=== PATIENT | female | born 2000 | race Caucasian/White ===

== ENCOUNTER 2020-11-07 14:18 | Emergency (ER) | payer SELFPAY ==
[~2020-11-07] VITALS: Ht 160 cm; Wt 54.5 kg
[2020-11-07 14:35] VITALS: TEMP 97.8
[2020-11-07 15:40] LABS: COLLECTION METHOD CLEAN CATCH
[2020-11-07 15:44] LABS: BASO % 0.2 % (0.0-2.0); EOS # 0.2 (0.0-0.7); EOS % 1.8 % (0-4.0); GRAN % 61.4 % (42.2-75.2); HEMOGLOBIN 12.7 g/dl (12.0-15.0); LYMPH # 2.4 (1.2-3.4); LYMPH % 29.4 % (20.0-51.0); MEAN CELL VOLUME 90 fl (80.0-95.0); MEAN CORPUSCULAR HEMOGLOBIN 31 pg (26.0-32.0); MEAN CORPUSCULAR HGB CONC 35 g/dl (33.0-37.0); MEAN PLATELET VOLUME 9.6 fl (7.4-10.4); MONO # 0.6 (0.1-0.6); PLATELET COUNT 280 K/mm3 (130-400); RED BLOOD COUNT 4.06 M/mm3 (4.10-5.30); REDCELL DISTRIBUTION WIDTH-CV 11.8 % (11.5-14.5)
[2020-11-07 15:47] LABS: HEMATOCRIT 36.7 % (35.0-45.0)
[2020-11-07 16:05] LABS: ALBUMIN 4.2 gm/dL (3.5-5.0); BILIRUBIN,TOTAL 0.3 mg/dL (0.0-1.0); CALCIUM 9.4 mg/dL (8.4-10.2); CREATININE, serum 0.41 (0.52-1.25); POTASSIUM 4.1 mmol/L (3.4-5.0); TOTAL PROTEIN 7.9 gm/dL (6.4-8.2)
[2020-11-07 16:18] LABS: AMORPHOUS CRYSTAL Present /uL; MUCOUS Present /lpf; PH 8 (5-8); URINE APPEARANCE Cloudy; URINE BACTERIA Rare /hpf; URINE BILIRUBIN Negative (NEGATIVE); URINE BLOOD Negative (NEGATIVE); URINE COLOR Yellow; URINE GLUCOSE Negative (NEGATIVE); URINE KETONE Negative (NEGATIVE); URINE LEUKOCYTE ESTERASE Negative (NEGATIVE); URINE NITRATE Negative (NEGATIVE); URINE PROTEIN(semi-quant) Negative (NEGATIVE); URINE RBC 0-2 /hpf; URINE UROBILINOGEN Negative (NEGATIVE)
[2020-11-07 17:41] VITALS: BP 109/81; PULSE 70
== END 2020-11-07 17:51 | disposition home or self-care (01) ==
LOC: COL.ER 14:18
PROVIDERS: Emergency Medicine; Nurse Practitioner
DX: R10.11 Right upper quadrant pain (principal); R07.81 Pleurodynia; R11.0 Nausea; R42 Dizziness and giddiness

== ENCOUNTER → 2020-11-16 | Outpatient (CLI) | payer SELFPAY | LOC: COL.RAD 07:25 | DX: R10.11 Right upper quadrant pain (principal) ==

== ENCOUNTER 2021-05-01 10:06 | Outpatient (CLI) | payer SELFPAY ==
[~2021-05-01] VITALS: Wt 66.4 kg
--- NOTE | 2021-05-01 10:20 | NUR ---
Pt ambulates onto unit by themselves. Changed into clean gown. Urine collected in specimen cup. FHR monitor/TOCO applied. Vital signs stable. Pt denies regular contractions, decreased movement, or gushing of fluid. Came in for complaint of vaginal bleeding SVE by this RN /3. No trace of blood noted on sterile glove. Will continue to monitor.
[2021-05-01 11:00] VITALS: BP 120/81; PULSE 79
[2021-05-01 12:02] LABS: TRICYCLIC ANTIDEPRESS URINE NEGATIVE
--- NOTE | 2021-05-01 12:40 | NUR ---
1240 Discharge paperwork discussed. Pt discharged home. Ambulatory off unit in stable condition.
[2021-05-01 19:04] LABS: COLLECTION METHOD CLEAN CATCH
[2021-05-01 19:22] LABS: PH 6 (5-8); SQUAMOUS EPITHELIAL 0-2 /hpf (0-10); URINE APPEARANCE Clear (CLEAR/HAZY); URINE BACTERIA None Seen (NONE SEEN); URINE BILIRUBIN Negative (NEGATIVE); URINE BLOOD Negative (NEGATIVE); URINE COLOR Straw (YELLOW); URINE GLUCOSE Negative (NEGATIVE); URINE KETONE Negative (NEGATIVE); URINE LEUKOCYTE ESTERASE Negative (NEGATIVE); URINE NITRATE Negative (NEGATIVE); URINE PROTEIN(semi-quant) Negative (NEGATIVE); URINE RBC 0-2 /hpf (0-2); URINE UROBILINOGEN Negative (NEGATIVE)
== END 2021-05-01 12:40 | disposition home or self-care (01) ==
LOC: LDRO 10:06
PROVIDERS: Obstetrics & Gynecology
DX: O46.93 Antepartum hemorrhage, unspecified, third trimester (principal); Z3A.37 37 weeks gestation of pregnancy

== ENCOUNTER 2021-05-03 17:22 | Outpatient (CLI) | payer SELFPAY ==
--- NOTE | 2021-05-03 18:20 | NUR ---
BEDSIDE REPORT RECIEVED FROM MAURICIO AUGUSTE AND CARE WAS ASSUMED AT THIS TIME
[2021-05-03 18:30] VITALS: BP 126/80; PULSE 84
--- NOTE | 2021-05-03 18:30 | NUR ---
PLAN OF CARE DISCUSSED WITH PATIENT USING [employer] AUDIO INTERPTRETING #[id number]. PT VERBALIZED AN UNDERSTANDING AND STATED VAGINAL BLEEDING FIRST WAS NOTICED LAST THURSDAY AND AGAIN ON THURSDAY. RN PROVIDED EDUCATION AND REASSURANCE THAT VAGINAL BLEEDING CAN OCCUR FOLLOWING VAGINAL EXAMS, PT VERBALIZED AN UNDERSTANDING. RN ALSO PROVIDED EDUCATION ABOUT NORMAL DISCOMFORTS OF AND EARLY LABOR SIGNS VS ACTIVE LABOR. PT VERBALIZED AN UNDERSTANDING AND DENIES FURTHER QUESTIONS.
[2021-05-03 19:00] VITALS: BP 131/87; PULSE 85
--- NOTE | 2021-05-03 19:00 | NUR ---
DISCHARGE TEACHING REVIEWED WITH [facility] AUDIO INTERPRETING #[id number]. RN REINFORCED EDUCATION ABOUT EARLY LABOR SIGNS VS ACTIVE LABOR AND NORMALS OF DISCOMFORT. PT VERBALIZED AN UNDERSTANDING AND DENIES FURTHER QUESTIONS.
--- NOTE | 2021-05-03 19:17 | NUR ---
PATIENT DISCHARGED TO HOME IN STABLE, UNDELIVERED CONDITION. PT WALKED DOWN TO EMERGENCY ROOM EXIT BY THIS RN AT THIS TIME
[2021-05-04] MEDS ORDERED: FERROUSGLUC256MG (10:44)
== END 2021-05-03 19:17 | disposition home or self-care (01) ==
LOC: LDRO 17:22
DX: O62.9 Abnormality of forces of labor, unspecified (principal); O46.93 Antepartum hemorrhage, unspecified, third trimester; Z3A.39 39 weeks gestation of pregnancy

== ENCOUNTER 2021-05-04 10:10 | Inpatient (IN) | payer SELFPAY ==
[2021-05-04] VITALS (26 sets, daily range): BP systolic 104–147; BP diastolic 55–83; PULSE 78–129; TEMP 97.6–99
--- NOTE | 2021-05-04 10:25 | NUR ---
Patient ambulatory to LR5 with friend, changed into gown, FHR/TOCO monitors applied. Patient speaks rwandan and friend is translating at this time. Patients friend states "she said that she started to contract regular around 0200 this morning and leaking some fluid, has wet two pads" Plan of care discussed. 1030: Patients thighs noted to be wet. SVE-3/90/-2 and amniotest positive/blood noted on glove and swab. Membranes felt with this check. Patient very uncomfortable with contractions. Dr. Brown called and notified and admit orders received. Consents gone over and friend translating. Andrew ARMENTA called and notified that patient is requesting epidural. 1115: IV started in left upper arm, blood obtained and to lab, LR infusing. 1155: Patient sitting up for epidural and Rina Guevara CRNA at bed. Patients friend translating. Difficulty tracing FHR due to maternal position. 1206: Test dose given and patient tolerates well. 1210: Safety instructions and plan of care translated to patient and questions answered. 1235: Dr. Brown at bedside and assessing patient and FHR strip. SVE-3/90/-2 and forebag noted and AROM done at this time. Clear fluid. Dr. Brown orders to start pitocin at this time. 1240: Pitocin discussed with patient and patient agrees with plan.
[2021-05-04] MEDS ORDERED: FERROUSGLUC256MG (10:44)
--- NOTE | 2021-05-04 11:00 | NUR ---
This RN asks friend Josefina more about patient. Josefina states "She came here by herself from [facility] looking for her father, she lives with friends but father of baby is not involved and is back in [facility]. I work with her at [facility] [employer], so I am just here to help her because she does not have many people here". This RN asks if who patient lives with is good support and friend states "they will not be very helpful with baby".
[2021-05-04 11:56] LABS: BASO % 0.2 % (0.0-2.0); EOS % 0.1 % (0.0-4.0); GRAN # 13.3 K/mm3 (1.4-6.5); HEMOGLOBIN 13.4 g/dl (12.5-16.0); LYMPH # 2.3 K/mm3 (1.2-3.4); LYMPH % 13.7 % (20.0-51.0); MEAN CELL VOLUME 89 fl (80.0-100.0); MEAN CORPUSCULAR HEMOGLOBIN 31 pg (27-31); MEAN CORPUSCULAR HGB CONC 34 g/dl (33.0-37.0); MEAN PLATELET VOLUME 10.9 fl (7.4-10.4); MONO # 0.7 K/mm3 (0.1-0.6); MONO % 4.5 % (1.7-9.3); PLATELET COUNT 298 K/mm3 (130-400); RED BLOOD COUNT 4.39 M/mm3 (4.10-5.30); REDCELL DISTRIBUTION WIDTH-CV 13.2 % (11.5-14.5)
--- NOTE | 2021-05-04 12:42 | NUR ---
FHR baseline 135bpm and deceleration noted, decreasing to 95bpm for 30second and patient wedged left and FHR returns to baseline. 1255: Serrano catheter placed and patient tolerates well. SVE-3-. 1300: Recurrent variable deceleration noted. Dr. Brown at bedside and SVE-. Patient right lateral with left leg resting in stirrup. 1340: Dr. Brown at nurses station reviewing FHR strip. 1355: SVE per physician .
--- NOTE | 2021-05-04 14:55 | NUR ---
SVE 6-/+1 and patient sitting in rebecca position. Patient has no needs.
--- NOTE | 2021-05-04 15:05 | NUR ---
Patient vomits at this time and RN at bedside to assist. 1530: Patient wedged right with peanut ball in place. Patient states she is tired and would like to rest. This RN updated patient on plan. 1540: Minimal variability noted with recurrent early decelerations. 1545: Dr. Brown at bedside to assess patient and FHR strip. SVE-10/100/+3. Patient prepped for vaginal delivery. 1550: Serrano catheter removed and patient tolerates well. Pushing instructions discussed and translated. 1552: Patient pushes with contraction. 1600: Patient continues to push with contractions. 1602: Spontaneous vaginal delivery of viable female-head followed by body. Infant bulb syringed and to patients Lupe solomon RN assumes care of . Patient requests to go to warmer and shows concern/care towards infant. Cord clamped and cut by physician and cord blood obtained. 1606: Spontaneous delivery of placenta and pitocin bolus started per protocol. Dr. Brown repairs laceration at this time. Fundal massade done, fundus low/firm/bleeding WNL. Patient repositioned and ice pack to perineum. Plan of care translated to patient.
--- NOTE | 2021-05-04 19:00 | NUR ---
1900 EPID CATH DC'D. ATTEMPTED TO STAND AT SIDE OF BED. RIGHT LEG STILL HEAVY AND UNABLE TO STAND ON IT. RETURNED TO BED AND PERICARE DONE. TO W/C AND TO 214. GERMAINE WELL. INSTRUCTIONS TO CALL FOR HELP GIVEN THRU INSPECTOR DIALS
[2021-05-05 01:00] VITALS: BP 101/55; PULSE 79; TEMP 98.1
[2021-05-05 04:00] VITALS: BP 116/72; PULSE 76; TEMP 97.9
[2021-05-05 07:35] VITALS: BP 102/49; PULSE 98; TEMP 98
[2021-05-05 16:30] VITALS: BP 103/58; PULSE 98; TEMP 98.2
[2021-05-05 21:33] VITALS: BP 118/70; PULSE 96; TEMP 98.4
[2021-05-06 03:00] VITALS: BP 110/62; PULSE 82; TEMP 98.1
[2021-05-06 07:15] VITALS: BP 111/65; PULSE 77; TEMP 98.3
--- NOTE | 2021-05-06 09:20 | NUR ---
Initial visit; Patient Sami speaking, Language [facility] smiled and motioned toward patient's baby and smiled and said God Bless and congratulations.
[2021-05-06] MEDS ORDERED: IBU800 M1 PO (10:27)
--- NOTE | 2021-05-06 12:23 | NUR ---
SW consulted to speak with patient due to moving here from [facility] and making sure she has resources. Patient does not speak nepalese so interpretation made through [employer]. Patient reports that she moved to [place] for work about 8-9 months ago. Patient is not a student at [employer] and has a 6th grad education level.The FOB is back in [facility]. Patient started receiving care at 19 weeks. Patient is unsure at this time if she will be returning back to [facility] or if she is going to stay here. Patient reports that she is not currently working and the reason for stopping was due to her getting farther in her . She would like to return to work as along as they have an opening. Patient is currently renting a room from her friends/ co workers apartment and reports that she feels safe living there.Patient reports that she does not have any family here but does have her friends/coworkers that is her support system. This is the patient's first child. Verbalizes that she "a little bit of everything" for the baby.More specifically, she does report to having a crib, car seat, clothing and diapers. Patient was viewed the baby during the whole interaction and would periodically switch the baby sides. Patient states that she has a friend picking her up today to take her back to her apartment. [facility]. Collaborated with the patient's RN who has no concerns, and that the physician had no concerns.
--- NOTE | 2021-05-06 13:00 | NUR ---
DISCHARGE TEACHING COMPLETED. USING PHONE LINE HYDROGEN CELL TENDER. PATIENT EDUCATED ON FOLLOW UP APPOINTMENT AND PRESCRIPTIONS. QUESTIONS INVITED AND ANSWERED.
== END 2021-05-06 13:50 | disposition home or self-care (01) | DRG 807 ==
LOC: LDRO 10:10 → LDR 11:04 → LDRO 11:05 → OB 11:05
PROVIDERS: Obstetrics & Gynecology; ADMIT Obstetrics & Gynecology
PROC: 10E0XZZ Delivery of Products of Conception, External Approach (ICD-10-PCS; principal; 2021-05-04)
PROC: 0KQM0ZZ Repair Perineum Muscle, Open Approach (ICD-10-PCS; 2021-05-04)
DX: O99.02 Anemia complicating childbirth (principal); Z37.0 Single live birth; D64.9 Anemia, unspecified; O62.0 Primary inadequate contractions; O70.1 Second degree perineal laceration during delivery; O71.82 Other specified trauma to perineum and vulva; Z3A.37 37 weeks gestation of pregnancy
CPT/HCPCS: J2590; J7120